=== PATIENT | male | born 1960 | race Caucasian/White ===

== ENCOUNTER 2016-09-30 08:54 | Emergency (ER) | payer OTHER ==
[2016-09-30] MEDS ORDERED: HYDROmorphone 1 MG/ML SYRINGE IVP STA (09:21)
[2016-09-30] MEDS ORDERED: ONDANSETRON 4 MG/2 ML VIAL IVP STA (09:21)
[2016-09-30] MEDS ORDERED: SODIUM CHLORIDE 0.9% 1,000 ML IV ONE (09:21)
[2016-09-30] MEDS ORDERED: KETOROLAC 60 MG/2 ML VIAL IVP STA (09:21)
[2016-09-30] MEDS ORDERED: KETOROLAC 30 MG/ML VIAL ONE (09:30)
[2016-09-30] MEDS ORDERED: ONDANSETRON 4 MG/2 ML VIAL ONE (09:31)
[2016-09-30] MEDS ORDERED: HYDROmorphone 1 MG/ML SYRINGE ONE (09:31)
== END 2016-09-30 11:24 | disposition home or self-care (01) ==
DX: N20.1 Calculus of ureter (principal); I10 Essential (primary) hypertension; F17.200 Nicotine dependence, unspecified, uncomplicated
CPT/HCPCS: 81001; 96374; 96375; 99284; J1170

== ENCOUNTER 2016-10-01 06:08 | Emergency (ER) | payer OTHER ==
[2016-10-01] MEDS ORDERED: KETOROLAC 60 MG/2 ML VIAL IM STA (06:13)
[2016-10-01] MEDS ORDERED: KETOROLAC 60 MG/2 ML VIAL ONE (06:14)
[2016-10-01] MEDS ORDERED: HYDROmorphone 1 MG/ML SYRINGE IM STA (07:24)
[2016-10-01] MEDS ORDERED: ONDANSETRON ODT 4 MG TABLET TL STA (07:24)
[2016-10-01] MEDS ORDERED: ONDANSETRON ODT 4 MG TABLET ONE (07:30)
[2016-10-01] MEDS ORDERED: HYDROmorphone 1 MG/ML SYRINGE ONE (07:30)
== END 2016-10-01 08:06 | disposition home or self-care (01) ==
DX: N20.1 Calculus of ureter (principal); Z87.442 Personal history of urinary calculi; I10 Essential (primary) hypertension; F17.200 Nicotine dependence, unspecified, uncomplicated
CPT/HCPCS: 81001; 96372; 99283; 99284; J1170; Q0162

== ENCOUNTER 2017-10-07 09:55 | Outpatient (CLI) | payer OTHER ==
[2017-10-07] MEDS ORDERED: GADOBUTROL 10 MMOL/10 ML VIAL ONE (10:08)
[2017-10-07] MEDS ORDERED: GADOBUTROL 10 MMOL/10 ML VIAL IVP ONE (11:10)
--- NOTE | 2017-10-09 08:52 | MRI Report ---
EXAM: MR ABDOMEN WITH AND WITHOUT CONTRAST EXAM DATE: 10/07/2017 11:27 AM. CLINICAL HISTORY: BENIGN NEOPLASM OF UNSPECIFIED ADRENAL GLAND. History of adrenal adenoma found duri ng CT of abdomen for frequent recurring kidney stones. COMPARISON: None. TECHNIQUE: Multiplanar breath-hold T1, T2, and DWI sequences obtained through the abdomen on an [facility]. Images obtained before and after administration of 7 mL Gadavist intravenous contrast. Multiph ase postcontrast images obtained of the liver and abdomen. FINDINGS: Lung Bases: Unremarkable. Liver: The liver has normal size, morphology, signal and enhancement. No evidence of mass or biliary dilatation. Gallbladder: The gallbladder is partially distended and appears normal with no wall thickening or sto ne. Pancreas: The pancreas appears normal with no mass or ductal dilatation. Spleen: The spleen appears normal. Kidneys and Adrenals: No hydronephrosis. 1.1 cm simple lateral and upper renal cyst. Tiny right lower renal cyst. 0.9 cm T1 hyperintense lateral right renal cyst containing hemorrhage or protein. No suspicious renal mass. A 1 x 1.5 cm left adrenal adenoma with decreased signal on ltd-lp-naods series. No suspicious adrenal mass. Normal right adrenal gland. Bowel: The small bowel and colon appear normal with no inflammation or obstruction. Retroperitoneum: The retroperitoneal structures appear normal with no mass or lymphadenopathy. IMPRESSION: 1. A 1.5 cm benign left adrenal adenoma. 2. Benign right renal cyst. 3. No hydronephrosis. [facility] Referring Provider Line: [phone] SITE ID: [id number]
== END 2017-10-07 09:56 | disposition home or self-care (01) ==
LOC: DI 09:55
PROVIDERS: ATTEND Internal Medicine
DX: D35.00 Benign neoplasm of unspecified adrenal gland (principal); Q61.02 Congenital multiple renal cysts
CPT/HCPCS: 74183; A9585

== ENCOUNTER 2017-12-23 09:12 | Outpatient (CLI) | payer OTHER ==
[2017-12-23] MEDS ORDERED: ALBUTEROL NEB 2.5 MG/3 ML INH ONE (11:00)
== END 2017-12-23 09:13 | disposition home or self-care (01) ==
LOC: RT 09:12
PROVIDERS: ATTEND Internal Medicine
DX: R06.00 Dyspnea, unspecified (principal)
CPT/HCPCS: 94060